=== PATIENT | female | born 2000 | race Caucasian/White ===

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

== ENCOUNTER 2024-01-03 17:25 | Outpatient (CLI) | payer BC, MEDICAID, SELFPAY ==
[2024-01-03] VITALS (12 sets, daily range): BP systolic 118–141; BP diastolic 60–69; PULSE 72–110; O2SAT 97–98; BMI 24.7
[2024-01-03] MEDS: terbutaline 1 mg/mL INJ 0.25 MG SUBCUT (18:21)
== END 2024-01-03 18:59 | disposition home or self-care (01) ==
LOC: OPOB 17:25 → OBGYN 17:26
PROVIDERS: PCP Obstetrics & Gynecology; Visit Provider Family Medicine
DX: O26.899 Other specified pregnancy related conditions, unspecified trimester (principal); Z3A.00 Weeks of gestation of pregnancy not specified; R10.9 Unspecified abdominal pain
CPT/HCPCS: 59025; 96372; 99211; J3105

== ENCOUNTER 2024-01-31 18:00 | Outpatient (CLI) | payer BC, MEDICAID, SELFPAY ==
[2024-01-31] VITALS (53 sets, daily range): BP systolic 110–139; BP diastolic 55–72; PULSE 74–117; TEMP 36.4; O2SAT 92–99; BMI 27.7
[2024-01-31] MEDS: terbutaline 1 mg/mL INJ 0.25 MG SUBCUT ×2 (18:56→19:23)
[2024-01-31] MEDS: lactated ringers 1,000 ML 999 ML IV (18:56)
[2024-01-31] MEDS: betamethasone susp 6 mg/mL 1 mL (per mL) 12 MG IM (19:12)
[2024-01-31] MEDS: NIFEdipine 10 mg Capsule 20 MG PO (19:52)
[2024-01-31] MEDS: dextrose 5%-lactated ringers 1,000 ML 125 ML IV (20:38)
[2024-01-31] MEDS: magnesium sulfate premix 4 GM/100 ML PREMIX IV (20:42)
[2024-01-31] MEDS: magnesium sulfate premix 20 GM/500 ML BAG IV (21:04)
--- NOTE | 2024-01-31 21:19 | P.HP_ITS ---
Providers/Chief Complaint Primary Care Provider: Ingrid Sutton DO Chief Complaint: CONTRACTIONS History of Present Illness Apolonia Jerome is a 23 year old female G2, P1 at 35 weeks 0 days gestation with PATRICK 03/06/24 by a 23w4d ultrasound who presented to labor and delivery complaining of regular contractions for the past 2-1/2 hours. Note on dates: At best she is 35w0d, at worst she is 33w3d. At her initial OBI she stated she had a 5w6d ultrasound that gave her PATRICK 03/17/24. At her second visit she stated the ultrasound was done 07/19/23, and was 5w6d, which would give an PATRICK of 03/14/24. Despite multiple attempts we were never able to receive copies of said ultrasound. The only verified due date we have is her 23-week 4-day ultrasound of 03/06/2024. The patient did have intercourse earlier today. She denies any loss of fluid or bleeding. She states that the contractions just started approximately 2 and half hours prior to presentation to labor and delivery. She reportedly has a high pain tolerance. Her contractions were rated as 3 out of 10 however nursing flagged her as higher as she appeared very uncomfortable and would pause during contractions. The patient does have a history of labor with her first . She states that she spent a couple days at [facility] for labor and was started on magnesium at that time and discharged home. She states that she presented to labor and delivery about twice a week in labor and they would stop her contractions and sent her home again. She ended up delivering at 37 weeks 3 days gestation. labs: Blood type A positive, antibody negative, hepatitis B nonreactive, hepatitis C nonreactive, HIV nonreactive, RPR nonreactive, rubella immune, GC chlamydia negative, she passed her 1 hour glucose tolerance test at 116, she is GBS unknown. Review of Systems Narrative: Regular contractions every 1 to 2 minutes, no bleeding, no loss of fluid, positive movement Medications/Allergies Home Medications Medication Instructions Recorded Confirmed Last Taken Type 1 cap PO DAILY 09/26/21 01/03/24 01/02/24 History Allergies Allergy/AdvReac Type Severity Reaction Status Date / Time No Known Allergies Allergy Verified 01/03/24 18:38 PFSH Acute PFSH: Family History (Updated 10/17/21 @ 13:42 by Elyssa Muhammad RN) Grandfather Heart disease maternal Diabetes maternal Grandmother Heart disease paternal Diabetes maternal and paternal Hypertension paternal Denies family history of Colon cancer Ovarian cancer Clotting disorder Hyperlipidemia Breast cancer Anesthesia complication Bleeding disorder Uterine cancer Thyroid disease Stroke Social History Current gender identity: Female Female Reproductive History: : 2 Para: 1 Other female reproductive history: #1. Normal spontaneous vaginal delivery on 10/27/2021, term at 37 weeks 3 days gestation, male 6 pounds 4 ounces. History of labor with magnesium and overnight stay in [place]. #2 current no complications thus far Other [facility] information: Supplemental [facility] Information: She does smoke 1 pack/day Vitals/I&O/Wt Last Vital Signs Temp 97.5 F L 01/31/24 18:22 Pulse 102 H 01/31/24 21:14 BP 115/55 01/31/24 21:14 Pulse Ox 97 01/31/24 21:12 O2 Del Method Room Air 01/31/24 20:50 01/31/24 01/31/24 01/31/24 06:59 14:59 22:59 Output Total 50 / 50 Balance -50 / -50 Weight last 48 hrs Weight 64.41 kg Physical Exam Narrative: No acute distress resting in bed complaining of feeling hot after starting the magnesium. Alert and oriented, heart regular rate and rhythm, lungs clear to auscultation bilaterally, abdomen is soft and nontender, contractions palpate mild, extremities have trace edema but no calf tenderness heart tones 140s moderate variability, positive accelerations, no decelerations. There is an audible arrhythmia. Nursing sterile vaginal exam: 3 cm, 60% effaced, -2 station, vertex presentation. Urinary Catheter Management: Cadena: Cath Placed During This Visit: yes Reason for Continuing Indwelling Catheter: Accurate Measurement of Urinary Output in Critically Ill Patients Urinary Catheter Date of Insertion: 01/31/24 Urinary Catheter Time of Insertion: 19:00 A&P Assessment and plan (1) labor in third trimester: The patient was given 2 doses of terbutaline with minimal result. She continued to contract approximately every 1 to 2 minutes. She was started on magnesium and ampicillin protocol. She was given 1 dose of betamethasone IM. I will contact [facility] in [place] to arrange for possible transport if the patient remains stable. Attestations Medical Necessity Statement*: labor Coding Level of Care Code Acute Code for Chg Fwd Diagnoses labor in third trimester O60.03
[2024-01-31] MEDS: ampicillin 2,000 MG in sodium chloride 0.9% (plus) 50 ML 100 MG IV (21:30)
--- NOTE | 2024-01-31 21:38 | PM.TDS ---
Transfer Summary Providers Date of Admission: 01/31/2024 Date of Discharge/Transfer: 01/31/24 Attending Provider at Admission: Rossy Segura MD Attending Provider at Transfer: Rossy Segura MD Primary Care Provider: Ingrid Sutton DO Transfer Plans: Anticipated date of transfer: 01/31/24. Receiving Facility: [facility]. Receiving Provider: Dr. Dax Son. Diagnoses at Discharge Discharge Diagnosis (1) labor in third trimester: Status: Acute Reason for Visit Reason for Visit CONTRACTIONS Hospital Course Hospital Course This is a 23-year-old G2, P1 at 35 weeks 0 days gestation by a 23-week 4-day ultrasound with an PATRICK of 03/06/2024, who presented to labor and delivery complaining of regular painful contractions. She was given 2 doses of terbutaline and started on magnesium. She was started on ampicillin protocol. Her contractions lessened in intensity and spaced out significantly. She had not made any significant cervical change in over 4 hours and was deemed stable for transport to [facility] in [place] Physical Exam Narrative: As per H&P Urinary Catheter Management: Cadena: Cath Placed During This Visit: yes Reason for Continuing Indwelling Catheter: Accurate Measurement of Urinary Output in Critically Ill Patients Urinary Catheter Date of Insertion: 01/31/24 Urinary Catheter Time of Insertion: 19:00 TS Data Studies Completed and Pending Pending at discharge Category Date Time Status Magnesium Level (OB Only) Q6H Lab 02/01/24 02:30 Uncollected Magnesium Level (OB Only) Q6H Lab 02/01/24 08:30 Uncollected Magnesium Level (OB Only) Q6 Lab 02/01/24 14:30 Uncollected Magnesium Level (OB Only) Q6 Lab 02/01/24 20:30 Uncollected Magnesium Level (OB Only) Q6H Lab 02/02/24 02:30 Uncollected Magnesium Level (OB Only) Q6H Lab 02/02/24 08:30 Uncollected Magnesium Level (OB Only) Q6H Lab 02/02/24 14:30 Uncollected Magnesium Level (OB Only) Q6 Lab 02/02/24 20:30 Uncollected Magnesium Level (OB Only) Q6H Lab 02/03/24 02:30 Uncollected Recent Clincial Data Last Vital Signs Temp 97.5 F L 01/31/24 18:22 Pulse 100 01/31/24 21:34 BP 114/56 01/31/24 21:34 Pulse Ox 96 01/31/24 21:32 O2 Del Method Room Air 01/31/24 20:50 Vital Signs Temp Pulse BP Pulse Ox O2 Del Method 01/31/24 21:34 100 01/31/24 21:34 114/56 01/31/24 21:32 108 H 01/31/24 21:32 96 01/31/24 21:27 103 H 01/31/24 21:27 97 01/31/24 21:24 101 H 01/31/24 21:24 113/56 01/31/24 21:22 104 H 01/31/24 21:22 97 01/31/24 21:17 101 H 01/31/24 21:17 97 01/31/24 21:14 102 H 01/31/24 21:14 115/55 01/31/24 21:12 106 H 01/31/24 21:12 97 01/31/24 21:09 102 H 01/31/24 21:09 93 01/31/24 21:07 105 H 01/31/24 21:07 97 01/31/24 21:04 104 H 01/31/24 21:04 110/56 01/31/24 21:02 105 H 01/31/24 21:02 96 01/31/24 20:57 104 H 01/31/24 20:57 97 01/31/24 20:55 111 H 01/31/24 20:55 117/64 01/31/24 20:52 109 H 01/31/24 20:52 97 01/31/24 20:50 Room Air 01/31/24 20:47 117 H 01/31/24 20:47 98 01/31/24 20:31 116 H 01/31/24 20:31 99 01/31/24 20:27 116 H 01/31/24 20:27 118/57 01/31/24 20:26 103 H 01/31/24 20:26 98 01/31/24 20:21 102 H 01/31/24 20:21 97 01/31/24 20:16 89 96 01/31/24 20:13 102 H 92 01/31/24 20:11 95 97 01/31/24 20:10 106 H 127/70 01/31/24 20:06 114 H 97 01/31/24 20:01 103 H 97 01/31/24 19:56 111 H 139/72 97 01/31/24 19:55 105 H 133/68 01/31/24 19:51 109 H 98 01/31/24 19:46 113 H 97 01/31/24 19:41 113 H 98 01/31/24 19:36 115 H 97 01/31/24 19:33 100 136/64 01/31/24 19:31 110 H 98 01/31/24 19:26 82 98 01/31/24 19:21 93 98 01/31/24 19:16 93 97 01/31/24 19:11 90 98 01/31/24 19:06 90 98 01/31/24 19:01 76 98 01/31/24 19:00 Room Air 01/31/24 18:56 95 98 01/31/24 18:51 74 97 01/31/24 18:38 80 120/63 01/31/24 18:22 97.5 F L 83 135/70 Intake & Output/Weight 01/29/24 01/30/24 01/31/24 02/01/24 06:59 06:59 06:59 06:59 Output Total 135 / 135 Balance -135 / -135 Weight 64.41 kg Vitals Last Vital Signs Temp 97.5 F L 01/31/24 18:22 Pulse 100 01/31/24 21:34 BP 114/56 01/31/24 21:34 Pulse Ox 96 01/31/24 21:32 O2 Del Method Room Air 01/31/24 20:50 TS Medications Medications Calcium Gluconate (Calcium Gluconate 0.1 Gm/Ml 10% Sdv 10ml) 1 gm IVP ONCE PRN PRN Reason: Reversal of Magnesium Sulfate Magnesium Sulfate (Magnesium Sulfate Premix) 20 gm in 500 mls @ 50 mls/hr IV .Q10H JAEL Last Admin: 01/31/24 21:04 Dose: 50 mls/hr Dextrose/Lactated Ringer's (Dextrose 5%-Lactated Ringers) 1,000 mls @ 125 mls/hr IV .Q8H JAEL Last Admin: 01/31/24 20:38 Dose: 125 mls/hr Ampicillin Sodium 1,000 mg/ (Sodium Chloride) 50 mls @ 100 mls/hr IV Q4H JAEL; Protocol Ampicillin Sodium 2,000 mg/ (Sodium Chloride) 50 mls @ 100 mls/hr IV ONCE ONE; Protocol Stop: 01/31/24 21:46 Last Admin: 01/31/24 21:30 Dose: 100 mls/hr Discontinued Medications Betamethasone Acet/Betameth SodPhos (Betamethasone Susp 6 Mg/Ml 1 Ml (Per Ml)) 12 mg IM ONCE ONE Stop: 01/31/24 18:49 Last Admin: 01/31/24 19:12 Dose: 12 mg Lactated Ringer's (Lactated Ringers) 1,000 mls @ 999 mls/hr IV .Q1H1M ONE Stop: 01/31/24 19:34 Last Admin: 01/31/24 18:56 Dose: 999 mls/hr Magnesium Sulfate (Magnesium Sulfate Premix) 4 gm in 100 mls @ 300 mls/hr IV ONCE ONE Stop: 01/31/24 20:39 Last Admin: 01/31/24 20:42 Dose: 300 mls/hr Nifedipine (Nifedipine 10 Mg Capsule) 20 mg PO ONCE ONE Stop: 01/31/24 19:47 Last Admin: 01/31/24 19:52 Dose: 20 mg Terbutaline Sulfate (Terbutaline 1 Mg/Ml Inj) 0.25 mg SUBCUT ONCE ONE Stop: 01/31/24 18:34 Last Admin: 01/31/24 18:56 Dose: 0.25 mg Terbutaline Sulfate (Terbutaline 1 Mg/Ml Inj) 0.25 mg SUBCUT ONCE ONE Stop: 01/31/24 19:15 Last Admin: 01/31/24 19:23 Dose: 0.25 mg Allergies No Known Allergies Allergy (Verified 01/03/24 18:38) Home Medications 1 cap PO DAILY 09/26/21 [History Confirmed 01/03/24] Discharge Plan Discharge Patient Disposition: Xfer Short-Term Hosp Prescriptions: No Action 1 cap PO DAILY Transfer Attestations Time Spent in Transfer Care: greater than 30 min Quality Metrics Clinical Quality Measures [ No reported AMI, CVA or VTE this stay] Coding Level of Care Code Acute Code for Chg Fwd Diagnoses labor in third trimester O60.03
--- NOTE | 2024-01-31 22:34 | PC.NURSE ---
Esteban [place] arrived at 220. Assuming care.
== END 2024-01-31 22:30 | disposition short-term general hospital (02) ==
LOC: OPOB 18:05 → OBGYN 18:06
PROVIDERS: Absent Provider Family Medicine; PCP Obstetrics & Gynecology; Visit Provider Family Medicine
DX: O60.03 Preterm labor without delivery, third trimester (principal); Z3A.35 35 weeks gestation of pregnancy
CPT/HCPCS: 51702; 59025; 96372; 99211; J0290; J0702; J3105; J3475; J7120; J7121

== ENCOUNTER 2024-02-11 19:29 | Outpatient (CLI) | payer BC, MEDICAID, SELFPAY ==
[2024-02-11 19:30] VITALS: BMI 27.1
[2024-02-11 19:38] VITALS: BP 139/89; PULSE 97
[2024-02-11 19:39] VITALS: RESP 16
[2024-02-11 19:56] VITALS: BP 158/83; PULSE 77
[2024-02-11 20:12] VITALS: BP 139/82; PULSE 85
[2024-02-11 21:15] VITALS: BP 120/72; PULSE 57
[2024-02-11 23:16] VITALS: BP 126/83; PULSE 73
== END 2024-02-11 23:55 | disposition home or self-care (01) ==
LOC: OPOB 19:30 → OBGYN 19:32
PROVIDERS: PCP Obstetrics & Gynecology; Visit Provider Obstetrics & Gynecology
DX: O26.899 Other specified pregnancy related conditions, unspecified trimester (principal); Z3A.00 Weeks of gestation of pregnancy not specified; R10.9 Unspecified abdominal pain
CPT/HCPCS: 59025; 99211

== ENCOUNTER 2024-02-16 03:02 | Inpatient (IN) | payer BC, MEDICAID, SELFPAY ==
[2024-02-16] VITALS (88 sets, daily range): BP systolic 110–172; BP diastolic 55–115; PULSE 68–153; RESP 16; TEMP 36.2–36.6; O2SAT 91–99; BMI 26.9
[2024-02-16 02:56] LABS: Basophils % 0.3 %; Eosinophils # 0.1 10^3/uL (0.0-0.8); Eosinophils % 0.5 %; Hematocrit 31.6 % (36-47); Lymphocytes # 2.4 10^3/uL (0.8-4.8); Lymphocytes % 21.6 %; Mean Corpuscular HGB Conc 34.5 g/dL (30-55); Mean Corpuscular Hemoglobin 30.4 pg (27-33); Mean Platelet Volume 11.7 fL (7.4-10.4); Monocytes # 0.6 10^3/uL (0.2-0.9); Monocytes % 5.2 %; Neutrophils # 7.88 10^3/uL (1.8-7.7); Nucleated Red Blood Cells % 0 %; Platelet Count 174 10^3/cmm (157-399); Red Blood Count 3.59 10^6/uL (3.85-5.65); Red Cell Distribution Width 12.5 % (12.1-15.1); White Blood Count 10.93 10^3/uL (3.29-11.43)
[2024-02-16] MEDS: ampicillin 2,000 MG in sodium chloride 0.9% (plus) 50 ML 100 MG IV (02:57)
[2024-02-16] MEDS: lactated ringers 1,000 ML 999 ML IV ×2 (02:57→03:58)
[2024-02-16] MEDS: ROPivacaine syringe 100 MG/50 ML SYRINGE 10 MG EPIDURAL ×4 (04:12→14:26)
--- NOTE | 2024-02-16 04:46 | P.ANESASSM_ITS ---
Pre-Anesthetic Assessment Height/Weight: Height 1.52 m Weight 62.596 kg Pulse BP Pulse Ox O2 Del Method 93 117/70 96 Room Air 02/16/24 04:42 02/16/24 04:42 02/16/24 04:31 02/16/24 03:00 Preop Diagnosis: IUP Labor Epidural Familial anesthetic complications: None Was Beta Donita taken within 24 hours: N/A Was Clonidine taken within 24 hours: N/A Last intake: CLEARS- CURRENT Social Tobacco (smokeless) and No alcohol Exam alert, oriented x 3 and clear to auscultation bilaterally Airway Submandibular: within normal limits Cervical ROM: within normal limits Mallampati: Class II Dentition: full History/ROS No significant history except as noted CV/HEM Palpitations (reports low K+ with ) None reported Hepatic None reported GI Gastroesophageal Reflux Disease Metabolic None reported Musc/skel None reported Neuropsych None reported Anesthetic Plan ASA status: 2 Anesthesia: Regional (specify below) Other: Labor Epidural Medications/Allergies Home Medications Medication Instructions Recorded Confirmed Last Taken Type 1 cap PO DAILY 09/26/21 02/11/24 02/11/24 History Allergies Allergy/AdvReac Type Severity Reaction Status Date / Time No Known Allergies Allergy Verified 02/11/24 19:41 Current Medications Generic Name Dose Route Start Last Admin Trade Name Freq PRN Reason Stop Dose Admin Lactated Ringer's 1,000 mls @ 999 mls/hr 02/16/24 02:27 02/16/24 03:58 Lactated Ringers IV 999 mls/hr .Q1H1M PRN Administration See label comments Ropivacaine 100 mg in 50 mls @ 10 mls/hr 02/16/24 02:30 02/16/24 04:12 Naropin Syringe EPIDURAL 10 mls/hr .Q5H JAEL Administration PFSH Anesthesia Family History Grandfather Heart disease maternal Diabetes maternal Grandmother Heart disease paternal Diabetes maternal and paternal Hypertension paternal Denies family history of Colon cancer Ovarian cancer Clotting disorder Hyperlipidemia Breast cancer Anesthesia complication Bleeding disorder Uterine cancer Thyroid disease Stroke Social History Current gender identity: Female Female Reproductive History : 2 Para: 1 Data Anesthesia 02/16/24 02:40 Short CBC 02/16/24 Range/Units 02:40 WBC 10.93 (3.29-11.43) 10^3/uL Hgb 10.90 L (11.27-16.99) g/dL Hct 31.6 L (36-47) % MCV 88.0 (85-98) fl Plt Count 174 (157-399) 10^3/cmm Neut % (Auto) 72.0 % Neut # (Auto) 7.88 H (1.8-7.7) 10^3/uL Blood Bank 02/16/24 02:40 Blood Type A Positive Rho(D) Type Rh positive Antibody Screen Negative Cardiac Studies: 2 No Data to Display Anesthesia Procedures Epidural Time Out Performed: Yes Consents Signed: Procedure Consent Consent: from patient, risks and benefits reviewed and patient agrees to proceed Lumbar Level: L3-L4 Epidural position: sitting Epidural procedure: sterile prep of area, 1% lidocaine to numb the area, negative for paresthesia passed, test dose given, 1.5% xylocaine 1:200k epi, placed PCEA, no systemic response, sterile dressing applied and L.U.D. no apparent complications Additional Comments: MANUEL @ 4.5cm , first attempt, - heme -csf. catheter threaded to 12cm with ease. Adequate analgesia achieved.
[2024-02-16] MEDS: dextrose 5%-lactated ringers 1,000 ML 125 ML IV (05:21)
[2024-02-16] MEDS: ampicillin 1,000 MG in sodium chloride 0.9% (plus) 50 ML 100 MG IV ×2 (06:41→11:40)
--- NOTE | 2024-02-16 09:34 | P.HP_ITS ---
Providers/Chief Complaint 2 Admitting Physician: Amy Fitzgerald DO Chief Complaint: contractions HPI [employer] History of Present Illness Apolonia Jerome is a 24 year old female at 37w2d by 23wk presenting for contractions. PMHx includes labor. course complicated by labor without delivery. Complains of worsening contractions since 10 pm yesterday. Denies LOF, vaginal bleeding. Good movement. care was fair and starting in the 2nd trimester Dr. Segura at [facility]. She received care with Dr. Segura until 34 weeks and now refuses to see Dr. Segura. As such per the monogram and letter paster list I have admitted patient for labor. Patient with labor at 35 weeks and received terbutaline x 2 and magnesium after which her contractions stopped and was transferred to [place] and discharged from there. Present Details : 2 Para: 1 Labs Blood type OB HPI: A (+) positive Rubella: Immune RPR: Negative GBS: Unknown HBsAG: Negative Other Lab Information: HIV negative Hep C Ab negative Pap smear NILM with negative GC/Chlam,Trich 1 hr GTT passed UCx wnl UDS negative Review of Systems 2 Const: Denies: fever(s) or chills Card: Denies: chest pain or palpitations Resp: Denies: dyspnea Medications/Allergies Home Medications Medication Instructions Recorded Confirmed Last Taken Type 1 cap PO DAILY 09/26/21 02/11/24 02/11/24 History Allergies Allergy/AdvReac Type Severity Reaction Status Date / Time No Known Allergies Allergy Verified 02/11/24 19:41 PFSH [employer] 2 PFSH: Surgical History (Updated 02/16/24 @ 10:00 by Amy Fitzgerald DO) S/P tonsillectomy and adenoidectomy Family History Grandfather Heart disease maternal Diabetes maternal Grandmother Heart disease paternal Diabetes maternal and paternal Hypertension paternal Denies family history of Colon cancer Ovarian cancer Clotting disorder Hyperlipidemia Breast cancer Anesthesia complication Bleeding disorder Uterine cancer Thyroid disease Stroke Social History Current gender identity: Female History History History 2 2 Term 1 0 Miscarriages/Ectopic 0 Living Children 1 Vitals/I&O/Wt Last Vital Signs Pulse 81 02/16/24 09:19 BP 122/69 02/16/24 09:19 Pulse Ox 96 02/16/24 04:31 O2 Del Method Room Air 02/16/24 03:00 02/15/24 02/16/24 02/16/24 22:59 06:59 14:59 Intake Total 1999 50 / 50 Balance 1999 50 / 50 Weight last 48 hrs Weight 138 lb Weight 138 lb Physical Exam 2 Const: COMMON NORMALS: no acute distress, no limitations, healthy appearing, alert and well nourished Resp: COMMON NORMALS: normal respiratory effort, No use of accessory muscles and clear to auscultation bilaterally Cardio: COMMON NORMALS: regular rate, regular rhythm, S1 normal heart sound present, S2 normal heart sound present and No murmurs present (Cardio) : OTHER: Gravid S=D SVE on my exam 6/80/-3, AROM with clear fluid at approx 9:45am with repeat SVE 6.5/80/-3 Extremity: NARRATIVE EXTREMITY EXAM: No LE edema Skin: COMMON NORMALS: no rashes or lesions noted Urinary Catheter Management: Cadena: Cath Placed During This Visit: yes Reason for Continuing Indwelling Catheter: Accurate Measurement of Urinary Output in Critically Ill Patients Urinary Catheter Date of Insertion: 02/16/24 Urinary Catheter Time of Insertion: 04:48 Data 02/16/24 02:40 Results Labs OB ([facility]): 2 Obstetrics 10/20/21 Blood Type A Positive 02/16/24 Antibody Screen Negative 02/16/24 Hct 31.6 % (36-47) L 02/16/24 Hgb 10.90 g/dL (11.27-16.99) L 02/16/24 Rho(D) Type Rh positive 02/16/24 Plt Count 174 10^3/cmm (157-399) 02/16/24 A&P Assessment and plan (1) Term : (2) Uterine contractions during : Plan 24yo at 37w2d admitted for labor. SVE on admission 5/70/-3 and changed to 5.5/80/-3 over the course of an hour. She has been unchanged from 6/80/-3 for greater than 4 hours and after discussion of benefits and risks AROM performed without complication- mother and baby tolerated procedure well. Has epidural for analgesia. Continuous EFM- Category 1 FHT Expectant management. GBS ppx due to GBS unknown. Attestations 2 Medical Necessity Statement*: Apolonia Jerome's hospital stay will require greater than 2 midnights for labor and delivery and care. Coding Level of Care Code Acute Code for Chg Fwd Diagnoses Term Z34.90 Uterine contractions during O47.9
--- NOTE | 2024-02-16 16:02 | PM.DELIVERY ---
Delivery Note: Date of delivery: February 16, 2024 Pre-delivery diagnoses: Term History of labor Post-delivery diagnoses: Term delivery of viable male Procedure: Spontaneous vaginal delivery Delivering Physician: Amy Fitzgerald DO Estimated blood loss (mL): 100 Pre-Delivery Course: Admitted on 02/16/2024 in the director food safety after starting contractions at 10 PM the night before. Her initial SVE was 5/70/-3 and she changed slowly to 6/80/-3. She did receive epidural for anesthesia. After few hours with no change AROM was performed at 9:45 AM with clear fluid. She then gradually progressed to complete. Delivery: Patient progressed to complete. Patient placed in lithotomy position. Patient pushed with adequate effort. Head delivered in LISE position, no nuchal cord was present. Shoulders and rest of body delivered without difficulty with adequate epidural anesthesia. Mouth and nares bulb suctioned. placed on maternal abdomen. Cord clamped and cut after 1 minute delay. Placenta spontaneously delivered and noted to be intact. Pitocin started. Fundus was noted to be firm. The vagina and cervix were inspected and midline first-degree laceration was noted as well as periurethral abrasion which was hemostatic. First-degree laceration was repaired with a 3-0 Vicryl fundus was again noted to be firm.. Male born at 1533 on 02/16/2022 with 8/9 weighing 7 pounds 7 ounces and measuring 21.5 inches in length, 13.75 inches head circumference and 13.75 inches chest circumference Placenta noted to be intact with centrally inserted umbilical cord and three-vessel cord. Complications: Maternal none Infant none History History History 2 Term 2 0 Miscarriages/Ectopic 0 Living Children 2 A&P Assessment and plan (1) Spontaneous vaginal delivery: Coding Level of Care Code Acute Code for Chg Fwd Diagnoses Spontaneous vaginal delivery O80
[2024-02-16] MEDS: acetaminophen 325 mg Tablet 650 MG PO (18:23)
--- NOTE | 2024-02-16 19:24 | ANE.PACU2 ---
Inpatient post-anesthesia follow up: Airway intact: Yes Vital signs: Temperature 97.9 F Pulse Rate 86 Respiratory Rate 16 Blood Pressure 147/63 Pulse Oximetry 96 Oxygen Delivery Me thod Room Air Oxygen Flow Rate Fraction of Inspir ed Oxygen Hydration adequate: Yes Nausea and vomiting: No Pain level: 2 Mental status: Baseline Epidural Start/End: Epidural Start Date: 02/16/24 Epidural Start Time: 03:47 Epidural End Date: 02/16/24 Epidural End Time: 16:35
[2024-02-16] MEDS: ibuprofen 800 mg tablet PO (21:24)
[2024-02-17] VITALS (7 sets, daily range): BP systolic 114–144; BP diastolic 67–80; PULSE 55–76; RESP 16; TEMP 36.4–36.6
[2024-02-17 04:39] LABS: Hematocrit 28.5 % (36-47); Mean Corpuscular HGB Conc 34.7 g/dL (30-55); Mean Corpuscular Hemoglobin 30.7 pg (27-33); Mean Corpuscular Volume 88.2 fl (85-98); Mean Platelet Volume 12.2 fL (7.4-10.4); Platelet Count 163 10^3/cmm (157-399); Red Blood Count 3.23 10^6/uL (3.85-5.65); Red Cell Distribution Width 12.7 % (12.1-15.1)
[2024-02-17] MEDS: ferrous sulfate EC 325 mg Tablet PO (08:42)
[2024-02-17] MEDS: ibuprofen 800 mg tablet PO ×3 (08:43→20:14)
[2024-02-17] MEDS: PRENATAL VIT NO.130/IRON/FOLIC 1 EACH TABLET PO (08:43)
[2024-02-17] MEDS: docusate sodium 100 mg Capsule PO ×2 (08:43→20:14)
--- NOTE | 2024-02-17 17:57 | PM.OBGYDC ---
Discharge Providers TERMINAL SUPERINTENDENT Date of Admission: 02/16/24 03:02 Date of Discharge: 02/17/24 Attending Provider at Admission: Amy Fitzgerald DO Attending Provider at Discharge: Amy Fitzgerald DO Diagnoses at Discharge Discharge Diagnosis (1) Spontaneous vaginal delivery: Status: Acute Reason for Visit Reason for Visit: contractions Hospital Course Hospital Course Estimated blood loss (mL): 100 Pre-Delivery Course: Admitted on 02/16/2024 in the [facility] after starting contractions at 10 PM the night before. Her initial SVE was 5/70/-3 and she changed slowly to 6/80/-3. She did receive epidural for anesthesia. After few hours with no change AROM was performed at 9:45 AM with clear fluid. She then gradually progressed to complete. Delivery: Patient progressed to complete. Patient placed in lithotomy position. Patient pushed with adequate effort. Head delivered in LISE position, no nuchal cord was present. Shoulders and rest of body delivered without difficulty with adequate epidural anesthesia. Mouth and nares bulb suctioned. placed on maternal abdomen. Cord clamped and cut after 1 minute delay. Placenta spontaneously delivered and noted to be intact. Pitocin started. Fundus was noted to be firm. The vagina and cervix were inspected and midline first-degree laceration was noted as well as periurethral abrasion which was hemostatic. First-degree laceration was repaired with a 3-0 Vicryl fundus was again noted to be firm.. Male born at 1533 on 02/16/2022 with 8/9 weighing 7 pounds 7 ounces and measuring 21.5 inches in length, 13.75 inches head circumference and 13.75 inches chest circumference Placenta noted to be intact with centrally inserted umbilical cord and three-vessel cord. Complications: Maternal none none Hospital Course: Patient underwent on 02/16/24. course was uncomplicated. Following delivery patient ambulated well, tolerated a normal diet without nausea or vomiting. Pain was well controlled on PO medications, well, no leg/calf pain, no calf/leg swelling, normal urination, passing gas. Vaginal bleeding thin lochia and decreasing. labs significant for hemoglobin 9.9 down from 10.9 on admission. She is discharged home on iron supplementation once daily. Follow-up planned for 6 weeks . Warning signs for endometritis, pre-eclampsia, DVT/PE, mastitis were reviewed, discussed additional warning signs including increased vaginal bleeding, worsening abdominal pain. Pelvic rest and activity precautions reviewed as well. She is discharged on 02/17/24 in stable condition. Information Peripartum Data: Infant Delivery Method: Vaginal Physical Exam Const: COMMON NORMALS: no acute distress, no limitations, healthy appearing, alert and well nourished Resp: COMMON NORMALS: normal respiratory effort, No use of accessory muscles and clear to auscultation bilaterally AUSCULTATION: clear to auscultation bilaterally Cardio: COMMON NORMALS: regular rate, regular rhythm, S1 normal heart sound present, S2 normal heart sound present and No murmurs present (Cardio) RATE: regular rate RHYTHM: regular rhythm HEART SOUNDS: S1 normal heart sound present and S2 normal heart sound present : OTHER: Uterine fundus firm and below the umbilicus Extremity: NARRATIVE EXTREMITY EXAM: No LE edema Neuro: SENSORIUM/ORIENTATION: Yes alert Skin: COMMON NORMALS: no rashes or lesions noted GENERAL SKIN EXAM: no rashes or lesions noted Urinary Catheter Management: [place]: Cath Placed During This Visit: yes Reason for Continuing Indwelling Catheter: Accurate Measurement of Urinary Output in Critically Ill Patients Urinary Catheter Date of Insertion: 02/16/24 Urinary Catheter Time of Insertion: 04:48 History History History 2 Term 2 0 Miscarriages/Ectopic 0 Living Children 2 Discharge Data Studies Completed and Pending Pending at discharge Category Date Time Status Group B Streptococcus Culture Stat Lab 02/16/24 01:58 Received Laboratory Results WBC 13.00 10^3/uL (3.29-11.43) H 02/17/24 04:21 RBC 3.23 10^6/uL (3.85-5.65) L 02/17/24 04:21 Hgb 9.90 g/dL (11.27-16.99) L 02/17/24 04:21 Hct 28.5 % (36-47) L 02/17/24 04:21 MCV 88.2 fl (85-98) 02/17/24 04:21 MCH 30.7 pg (27-33) 02/17/24 04:21 MCHC 34.7 g/dL (30-55) 02/17/24 04:21 RDW 12.7 % (12.1-15.1) 02/17/24 04:21 Plt Count 163 10^3/cmm (157-399) 02/17/24 04:21 MPV 12.2 fL (7.4-10.4) H 02/17/24 04:21 Neut % (Auto) 72.0 % 02/16/24 02:40 Lymph % (Auto) 21.6 % 02/16/24 02:40 [place] % (Auto) 5.2 % 02/16/24 02:40 Eos % (Auto) 0.5 % 02/16/24 02:40 Baso % (Auto) 0.3 % 02/16/24 02:40 Neut # (Auto) 7.88 10^3/uL (1.8-7.7) H 02/16/24 02:40 Lymph # (Auto) 2.4 10^3/uL (0.8-4.8) 02/16/24 02:40 [place] # (Auto) 0.6 10^3/uL (0.2-0.9) 02/16/24 02:40 Eos # (Auto) 0.1 10^3/uL (0.0-0.8) 02/16/24 02:40 Baso # (Auto) 0.0 10^3/uL (0.0-0.1) 02/16/24 02:40 Nucleated RBC % (auto) 0 % 02/16/24 02:40 Nucleated RBCs # 0.0 /100WBC 02/16/24 02:40 Blood Type A Positive 02/16/24 02:40 Rho(D) Type Rh positive 02/16/24 02:40 Antibody Screen Negative 02/16/24 02:40 Vitals Last Vital Signs Temp 97.5 F L 02/17/24 09:48 Pulse 61 02/17/24 17:50 Resp 16 02/17/24 09:48 BP 130/68 02/17/24 17:50 Pulse Ox 96 02/16/24 04:31 O2 Del Method Room Air 02/16/24 03:00 Results Labs OB ([facility]): Obstetrics US 10/20/21 Blood Type A Positive 02/16/24 Antibody Screen Negative 02/16/24 Hct 28.5 % (36-47) L 02/17/24 Hgb 9.90 g/dL (11.27-16.99) L 02/17/24 Rho(D) Type Rh positive 02/16/24 Plt Count 163 10^3/cmm (157-399) 02/17/24 Uric Acid 3.9 mg/dL (2.4-5.7) 10/11/21 Urine Opiates Screen Negative ng/mL (Negative) 09/25/21 Ur Barbiturates Screen Negative ng/mL (Negative) 09/25/21 Ur Phencyclidine Scrn Negative ng/mL (Negative) 09/25/21 Ur Amphetamines Screen Negative ng/mL (Negative) 09/25/21 U Benzodiazepines Scrn Negative ng/mL (Negative) 09/25/21 Urine Cocaine Screen Negative ng/mL (Negative) 09/25/21 U Marijuana (THC) Screen Negative ng/mL (Negative) 09/25/21 Discharge Plan Discharge Patient Disposition: Home Condition: Stable Prescriptions: New ibuprofen 800 mg Tablet 800 mg PO TID Qty: 90 0RF docusate sodium 100 mg Capsule 100 mg PO BID Qty: 60 0RF ferrous sulfate 325 mg (65 mg iron) Tablet,Delayed Release (Dr/Ec) 325 mg PO DAILY Qty: 30 0RF Continued 1 cap PO DAILY Discharge Orders: Discharge Order (Routine); Ordered 02/17/24 Ordered By: Amy Fitzgerald Discharge Diet: Regular Discharge Activity: Increase activity as tolerated Patient Instructions: Depression (DC), Opioid Safety (DC), Preeclampsia and Eclampsia After Delivery (GEN), Hemorrhage (DC), OB Discharge Report, OB Food/Drug Interaction Guide, OB Care at Home, Opioid Safety, OB Vaginal Deliveries, Abnormal Bleeding Activity Restrictions/Additional Instructions: Pelvic rest for 6 weeks. Follow-up for care at 6 weeks. Discharge Attestations TERMINAL SUPERINTENDENT Time Spent in Discharge Care*: less than 30 min Coding Level of Care Code Acute Code for Chg Fwd Diagnoses Spontaneous vaginal delivery O80
== END 2024-02-17 21:38 | disposition home or self-care (01) | DRG 807 ==
LOC: OPOB 03:03 → OBGYN 03:03
PROVIDERS: Admitting Provider Family Medicine; Visit Provider Family Medicine
DX: O60.23X0 Term delivery with preterm labor, third trimester, not applicable or unspecified (principal); Z37.0 Single live birth; O70.0 First degree perineal laceration during delivery; Z3A.37 37 weeks gestation of pregnancy
CPT/HCPCS: 36415; 51702; 59025; 59409; 85025; 85027; 86850; 86900; 87081; 99211; J0290; J2795; J7120; J7121